=== PATIENT | male | born 1990 | race Two or more races ===

== ENCOUNTER 2019-09-17 10:27 | Emergency (ER) | payer OTHER ==
[~2019-09-17] VITALS: Ht 182.9 cm; Wt 88.0 kg
[2019-09-17 11:12] LABS: CALCIUM 9.1 mg/dL (8.5-10.1); CREATININE 1.1 mg/dL (0.7-1.3); GFR 78.1; POTASSIUM 4.3 mmol/L (3.5-5.1)
[2019-09-17 11:40] LABS: BASO % 0 % (0-3); EOS # 0.1 x10^3/uL (0.0-0.7); EOS % 1 % (0-3); HEMATOCRIT 47.2 % (39.0-53.0); HEMOGLOBIN 16.3 g/dL (13.0-17.5); LYMPH # 1.4 x10^3/uL (1.0-4.8); LYMPH % 19 % (24-48); MEAN CORPUSCULAR HEMOGLOBIN 31 pg (25-35); MEAN CORPUSCULAR HGB CONC 34 g/dL (31-37); MEAN CORPUSCULAR VOLUME 91 fL (79-100); MONO # 0.5 x10^3/uL (0.0-1.1); MONO % 7 % (0-9); NEUT # 5.3 x10^3/uL (1.8-7.7); NEUT % 73 % (31-73); PLATELET COUNT 120 x10^3/uL (140-400); RED BLOOD COUNT 5.17 x10^6/uL (4.30-5.70); RED CELL DISTRIBUTION WIDTH 13.3 % (11.5-14.5); WHITE BLOOD COUNT 7.3 x10^3/uL (4.0-11.0)
[2019-09-17 12:21] LABS: BILIRUBIN,URINE SMALL (NEG); CLARITY,URINE CLEAR; COLOR,URINE AMBER; NITRITE,URINE NEGATIVE (NEG); PROTEIN,URINE NEGATIVE (NEG-TRACE)
[2019-09-17 12:36] LABS: SQUAMOUS EPITHELIAL CELL,UR FEW /LPF
[2019-09-17 12:37] LABS: BACTERIA,URINE 0 /HPF (0-FEW)
[2019-09-17] MEDS ORDERED: IBUPROFEN 400 MG TABLET. PO ONE (12:45)
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
[2019-09-17] MEDS ORDERED: ACETAMINOPHEN 500 MG TABLET PO ONE (13:00)
[2019-09-17 13:15] VITALS: BP 94/50
== END 2019-09-17 13:07 | disposition home or self-care (01) ==
LOC: EEVIPCON 10:27 → ER 10:27
DX: B34.9 Viral infection, unspecified (principal); Z20.828 Contact with and (suspected) exposure to other viral communicable diseases
CPT/HCPCS: 36415; 80048; 81001; 82550; 85025; 99283; U0003